=== PATIENT | female | born 1995 | race Two or more races ===

== ENCOUNTER 2017-07-08 04:32 | Emergency (ER) | payer OTHER ==
[~2017-07-08] VITALS: Ht 149.9 cm; Wt 52.6 kg
[2017-07-08] MEDS ORDERED: PRENATAL + DHA1 EAC1 (04:53)
== END 2017-07-08 12:58 ==
LOC: ER 04:32
DX: Z34.02 Encounter for supervision of normal first pregnancy, second trimester (principal); R10.2 Pelvic and perineal pain

== ENCOUNTER 2017-09-05 21:29 | Outpatient (CLI) | payer OTHER ==
[~2017-09-05 21:29] MED LIST: PRENATAL + DHA1 EAC1
== END 2017-09-06 20:36 | disposition home or self-care (01) ==
LOC: OBS/DEL 21:29
DX: O26.892 Other specified pregnancy related conditions, second trimester (principal); Z04.1 Encounter for examination and observation following transport accident; Z34.82 Encounter for supervision of other normal pregnancy, second trimester; V49.88XA Car occupant (driver) (passenger) injured in other specified transport accidents, initial encounter; Y93.89 Activity, other specified; Y92.488 Other paved roadways as the place of occurrence of the external cause; Y99.8 Other external cause status

== ENCOUNTER 2017-12-02 04:04 | Outpatient (CLI) | payer OTHER | END 2017-12-02 13:33 | disposition home or self-care (01) | LOC: OBS/DEL 04:04 | DX: O26.893 Other specified pregnancy related conditions, third trimester (principal); K29.70 Gastritis, unspecified, without bleeding; Z34.83 Encounter for supervision of other normal pregnancy, third trimester ==

== ENCOUNTER 2017-12-19 17:30 | Inpatient (IN) | payer OTHER ==
[~2017-12-19] VITALS: Ht 149.9 cm; Wt 2.3 kg
[2017-12-23] MEDS ORDERED: ALDOMET500 MG PO (08:18)
[2017-12-23] MEDS ORDERED: IBUPROFEN600 MG PO (08:19)
== END 2017-12-23 14:34 | disposition home or self-care (01) | DRG 766 ==
LOC: LDR 17:30 → OB/GYN 12-20 15:07
PROVIDERS: Obstetrics & Gynecology
PROC: 4A1HXCZ Monitoring of Products of Conception, Cardiac Rate, External Approach (ICD-10-PCS; 2017-12-19)
PROC: 4A033R1 Measurement of Arterial Saturation, Peripheral, Percutaneous Approach (ICD-10-PCS; 2017-12-20)
PROC: 10D00Z1 Extraction of Products of Conception, Low, Open Approach (ICD-10-PCS; principal; 2017-12-20 07:00)
DX: O14.13 Severe pre-eclampsia, third trimester (principal); Z3A.39 39 weeks gestation of pregnancy; Z37.0 Single live birth